=== PATIENT | female | born 1980 | race Caucasian/White ===

== ENCOUNTER 2016-12-01 20:04 | Emergency (ER) | payer MEDICAID, OTHER ==
[~2016-12-01] VITALS: Ht 162.6 cm; Wt 71.2 kg
[2016-12-01 20:29] LABS: BASOPHILS # (AUTO) 0.1 /CMM (0.0-0.2); EOSINOPHILS # (AUTO) 0.1 /CMM (0.0-0.7); HEMATOCRIT 41 % (33-45); HEMOGLOBIN 13.8 g/dL (11.5-14.8); LYMPHOCYTES # (AUTO) 2.6 /CMM (0.8-4.8); MEAN CORPUSCULAR HEMOGLOBIN 33 PG (26.0-33.0); MEAN CORPUSCULAR HGB CONC 34 g/dl (31.0-36.0); MEAN CORPUSCULAR VOLUME 96 fL (82-100); MONOCYTES # (AUTO) 0.7 /CMM (0.1-1.30); MONOCYTES % (AUTO) 9.3 % (2.0-12.0); NEUTROPHILS # (AUTO) 3.8 /CMM (1.8-8.9); NEUTROPHILS % (AUTO) 51.7 % (43.0-81.0); PLATELET COUNT (AUTO) 300 /CMM (150-450); RDW COEFFICIENT OF VARIATION 12.1 (11.5-15.0); RED BLOOD CELL COUNT(AUTO) 4.23 MIL/uL (4.0-5.2); WHITE BLOOD COUNT (AUTO) 7.3 K/uL (4.3-11.0)
[2016-12-01 20:39] LABS: CALCIUM, SERUM 8.6 mg/dL (8.5-10.1); CREATININE 0.7 mg/dL (0.6-1.3)
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
[2016-12-01 23:27] VITALS: BP 119/76
--- NOTE | 2016-12-01 23:27 | NUR ---
Patient discharged to home in stable condition. Written and verbal after care instructions given. Patient verbalizes understanding of instruction. ambulatory with a steady gait noted. pt aaox4 no acute distress noted, resp even and unlabored.
== END 2016-12-01 23:28 | disposition home or self-care (01) ==
LOC: ER 20:13
DX: O03.4 Incomplete spontaneous abortion without complication (principal); N83.209 Unspecified ovarian cyst, unspecified side
CPT/HCPCS: 36415; 76856-TC; 80048-TC; 84702-TC; 85025-TC; A4606; Z7610

== ENCOUNTER 2018-05-05 22:51 | Emergency (ER) | payer MEDICAID ==
[~2018-05-05] VITALS: Ht 165.1 cm; Wt 78.0 kg
[2018-05-05 23:19] VITALS: BP 114/81
[2018-05-05] MEDS ORDERED: IBUPROFEN 400 MG TABLET ONE (23:47)
[2018-05-06] MEDS ORDERED: IBUPROFEN 400 MG TABLET PO ONE
== END 2018-05-06 01:07 | disposition home or self-care (01) ==
LOC: ER 22:53
DX: S92.315A Nondisplaced fracture of first metatarsal bone, left foot, initial encounter for closed fracture (principal); Z98.890 Other specified postprocedural states; W01.0XXA Fall on same level from slipping, tripping and stumbling without subsequent striking against object, initial encounter; Y93.89 Activity, other specified; Y92.219 Unspecified school as the place of occurrence of the external cause; Y99.8 Other external cause status
CPT/HCPCS: 73630-TC; A6402

== ENCOUNTER 2020-01-24 00:05 | Emergency (ER) | payer MEDICAID ==
[~2020-01-24] VITALS: Ht 165.1 cm; Wt 72.6 kg
[2020-01-24 00:10] VITALS: BP 147/79
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
--- NOTE | 2020-01-24 00:40 | NUR ---
Patient discharged to home in stable condition. Written and verbal after care instructions given. Patient verbalizes understanding of instruction.
--- NOTE | 2020-01-24 00:40 | NUR ---
Prescriptions given and provided to the patient. patient verbalizes understanding of not operating behind machinery while under the influence of medication.
== END 2020-01-24 00:42 | disposition home or self-care (01) ==
LOC: ER 00:05
DX: S16.1XXA Strain of muscle, fascia and tendon at neck level, initial encounter (principal); Z98.890 Other specified postprocedural states; V49.49XA Driver injured in collision with other motor vehicles in traffic accident, initial encounter; Y93.89 Activity, other specified; Y92.488 Other paved roadways as the place of occurrence of the external cause; Y99.8 Other external cause status